=== PATIENT | male | born 1990 | race Caucasian/White ===

== ENCOUNTER 2019-02-16 05:10 | Emergency (ER) | payer OTHER ==
[~2019-02-16] VITALS: Ht 175.3 cm; Wt 91.2 kg
[2019-02-16 05:12] VITALS: BP 157/86
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
--- NOTE | 2019-02-16 05:23 | NUR ---
PATIENT BIB [facility] PATROL POLICE DEPT. PATIENT EXAMINED BY DR. HAQUE. PATIENT MEDICALLY CLEARED AND RELEASED IN CUSTODY IN STABLE CONDITION. ORIGINAL PRE-BOOK FORM GIVEN TO OFFICER EVIE.
[2019-02-16 05:24] VITALS: BP 157/86
== END 2019-02-16 05:24 ==
LOC: MED 05:10
DX: F10.129 Alcohol abuse with intoxication, unspecified (principal); Z02.89 Encounter for other administrative examinations; V89.2XXA Person injured in unspecified motor-vehicle accident, traffic, initial encounter; Y93.89 Activity, other specified; Y92.89 Other specified places as the place of occurrence of the external cause; Y99.8 Other external cause status
CPT/HCPCS: 99283